=== PATIENT | female | born 1965 | race Caucasian/White ===

== ENCOUNTER 2021-05-28 10:25 | Emergency (ER) | payer BC ==
[2021-05-28] MEDS ORDERED: Fluorescein 1 MG Ophth Strip EYELF ONE (10:50)
[2021-05-28] MEDS ORDERED: Proparacaine 0.5% Ophth Soln 15 ML Bottle EYELF PRN (10:50)
[2021-05-28] MEDS ORDERED: Ciprofloxacin 0.3% Ophth Soln 2.5 ML Bottle EYELF ONE (11:05)
== END 2021-05-28 11:20 | disposition home or self-care (01) ==
LOC: VM.ED 10:25
DX: S05.02XA Injury of conjunctiva and corneal abrasion without foreign body, left eye, initial encounter (principal); W22.8XXA Striking against or struck by other objects, initial encounter
CPT/HCPCS: 99283; A9270-GY